=== PATIENT | female | born 1985 | race Caucasian/White ===

== ENCOUNTER → 2017-12-04 09:24 | Outpatient (CLI) | payer BC, SELFPAY ==
[2017-12-04 10:39] LABS: Cholesterol 176 mg/dL (200); Glucose 87 mg/dL (74-106); High Density Lipoprotein 42 mg/dL; Thyroid Stim Hormone (TSH) 1.14 uIU/mL (0.358-3.74); Triglycerides 126 mg/dL; Very Low Density Lipoprotein 25 mg/dL (5-40)
== END ==
PROVIDERS: Family Provider Family Medicine; PCP Family Medicine; Visit Provider Nurse Practitioner Women's Health
DX: R53.83 Other fatigue (principal); Z13.9 Encounter for screening, unspecified; R63.5 Abnormal weight gain
CPT/HCPCS: 36415; 80061; 82947; 84443

== ENCOUNTER → 2019-01-29 09:50 | Outpatient (CLI) | payer OTHER, SELFPAY ==
[2018-10-28 09:03] VITALS: BMI 34.2
--- NOTE | 2019-01-29 09:57 | RAD_ITS ---
STUDY: X-RAY - LUMBAR SPINE REASON FOR EXAM: Female, 33 years old. Low back pain. TECHNIQUE: 5 view(s) of the lumbar spine were obtained. COMPARISON: None FINDINGS: Normal lumbar lordosis. There is no substantial scoliosis. There is a normal alignment of the vertebrae. There is multilevel endplate spondylosis of the lumbar vertebrae. There is multi-level degenerative disc disease with multi-level disc space narrowing. The soft tissue structures are unremarkable. RAD/L/S Spine Min 4 Views IMPRESSION: Degenerative disc disease lower lumbar spine. MRI would be useful. Electronically Signed: Del Dixon MD at 15:57 EDT Tel , Service support ,
== END ==
PROVIDERS: Family Provider Family Medicine; PCP Family Medicine; Referring Provider Family Medicine; Visit Provider Family Medicine
DX: G89.29 Other chronic pain (principal); M54.9 Dorsalgia, unspecified
CPT/HCPCS: 72110

== ENCOUNTER → 2020-09-16 11:28 | Outpatient (CLI) | payer OTHER, SELFPAY ==
[2018-10-28 09:03] VITALS: BMI 34.2
[2020-09-16 15:40] LABS: Vitamin D,25 Hydroxy 41.4 ng/mL
[2020-09-16 15:57] LABS: ALB/GLOB Ratio 1.1 RATIO (0.9-2.4); AST(SGOT) 26 U/L (15-37); Alanine Aminotransfer ALT/SGPT 35 U/L (13-56); Albumin, Serum 4.1 g/dL (3.2-5.0); Alkaline Phosphatase 86 U/L (45-117); Anion Gap 5 (5-15); BUN 12 mg/dL (7-18); Calcium,Total 9.6 mg/dL (8.5-10.1); Chloride 102 mmol/L (98-107); Cholesterol 195 mg/dL (200); EST Glomerular Filtration Rate 86 mL/min (>60); Est Glom Filt Rate - Afr Amer 104 mL/min (>60); Globulin 3.7 g/dL (2.2-4.2); Glucose 84 mg/dL (74-106); High Density Lipoprotein 61 mg/dL; Potassium 3.9 mmol/L (3.5-5.1); Protein, Total 7.8 g/dL (6.4-8.2); Sodium Level 136 mmol/L (136-145); Triglycerides 111 mg/dL; Very Low Density Lipoprotein 22 mg/dL (5-40)
== END ==
PROVIDERS: PCP Family Medicine; Referring Provider Family Medicine; Visit Provider Family Medicine
DX: Z13.220 Encounter for screening for lipoid disorders (principal); Z68.31 Body mass index [BMI] 31.0-31.9, adult; Z82.62 Family history of osteoporosis
CPT/HCPCS: 36415; 80053; 80061; 82306

== ENCOUNTER → 2022-02-15 | Outpatient (CLI) | payer BC, SELFPAY ==
[2022-02-15 11:50] LABS: Vitamin D,25 Hydroxy 69.6 ng/mL
[2022-02-15 12:18] LABS: Cholesterol 176 mg/dL (200); Glucose 100 mg/dL (74-106); High Density Lipoprotein 42 mg/dL; Triglycerides 158 mg/dL; Very Low Density Lipoprotein 32 mg/dL (5-40)
[2022-02-20 13:55] LABS: HPV APTIMA, High Risk Negative (Negative)
== END | disposition home or self-care (01) ==
PROVIDERS: PCP Family Medicine; Referring Provider Nurse Practitioner Women's Health; Visit Provider Nurse Practitioner Women's Health
DX: Z13.21 Encounter for screening for nutritional disorder (principal); Z13.29 Encounter for screening for other suspected endocrine disorder; Z13.220 Encounter for screening for lipoid disorders; Z13.1 Encounter for screening for diabetes mellitus; Z12.4 Encounter for screening for malignant neoplasm of cervix
CPT/HCPCS: 36415; 80061; 82306; 82947; 84443; 87624; 88175; G0145

== ENCOUNTER → 2024-06-30 | Outpatient (CLI) | payer BC, SELFPAY | END | disposition home or self-care (01) | LOC: LABSPEC 11:23 | PROVIDERS: PCP Family Medicine; Referring Provider Nurse Practitioner Women's Health; Visit Provider Nurse Practitioner Women's Health | DX: N94.89 Other specified conditions associated with female genital organs and menstrual cycle (principal) | CPT/HCPCS: 87070; 87077; 87205 ==